=== PATIENT | female | born 1965 | race Caucasian/White ===

== ENCOUNTER 2016-11-19 20:19 | Emergency (ER) | payer OTHER ==
[2016-11-19 21:20] VITALS: BP 96/69
--- NOTE | 2016-11-19 22:11 | UC ---
Lower Extremity/Ankle HPI - HPI Summary HPI Summary: The patient comes in today for: 1. Right ankle pain: Onset: 1 weeks Palliative/provocative: Touching it and standing on it makes it worse. Walking makes it worse. Quality: Burning Region: right lateral ankle Severity: 7/10 Time: Constant. Associated symptoms: Event: She hit her lateral right ankle against a ladder. Treatment: She has been taking oxycodone. * - History of Current Complaint Chief Complaint: UCLowerExtremity Stated Complaint: RIGHT ANKLE INJURY Time Seen by Provider: 11/19/16 21:37 Hx Obtained From: Patient Hx Last Menstrual Period: Years ago. ?: No - Allergies/Home Medications Allergies/Adverse Reactions: Allergies Allergy/AdvReac Type Severity Reaction Status Date / Time No Known Allergies Allergy Verified 11/19/16 21:20 Home Medications: Home Medications Cholecalciferol TAB* [Vitamin D TAB*] 1,000 unit PO DAILY 11/19/16 [History Confirmed 11/19/16] Metoprolol Tartrate TAB* [Lopressor TAB*] 25 mg PO DAILY 11/19/16 [History Confirmed 11/19/16] Pravastatin Sodium [Pravachol] 40 mg PO DAILY 11/19/16 [History Confirmed ] Valsartan TAB* [Diovan TAB*] 160 mg PO DAILY 11/19/16 [History Confirmed ] PMH/Surg Hx/FS Hx/Imm Hx Previously Healthy: No - Chronic back pain, bee allergy Endocrine History Of: Reports: Dyslipidemia Cardiovascular History Of: Reports: Cardiac Disorders - [place], Hypertension, Atrial Fibrillation Denies: Pacemaker/ICD, Myocardial Infarction, Congestive Heart Failure, Deep Vein Thrombosis, Bleeding Disorders Respiratory History Of: Reports: COPD, Asthma Denies: Bronchitis - FREQUENTLY, [place] PAST 2 YEARS, Pneumonia, Pulmonary Embolism GI/ History Of: Reports: Gastroesophageal Reflux, Ulcer - 3 BLEEDING ULCERS, Kidney Stones - HX of Denies: Gastrointestinal Bleed, Gall Bladder Disease, Diverticulitis, Renal Disease, Urosepsis Neurological History Of: Reports: Migraine - RARELY Denies: TIA, CVA, Dementia, Seizures Psychological History Of: Reports: Depression - ON MEDS Denies: Anxiety, Bipolar Disorder, Schizophrenia, Post Traumatic Stress Disorder Cancer History Of: Denies: Lung Cancer, Colorectal Cancer, Breast Cancer, Prostate Cancer, Cervical Cancer Other History Of: Negative For: HIV, Hepatitis B, Hepatitis C, Anticoagulant Therapy - Surgical History Surgical History: Yes Surgery Procedure, Year, and Place: C SECTIONS, 1996, 1990,2001, [place], [place], [place]. [place], [place], 1991. LEFT CARPAL TUNNEL, 2009, [facility] [place]. RIGHT HAND,1996, [place]. CYST FROM RIGHT HAND, [facility] [place]. GALLBLADDER - 04/11 -. CARDIAC CATH - NO STENTS - Family History Known Family History: Positive: Cardiac Disease, Hypertension, Diabetes - Social History Occupation: Unemployed Alcohol Use: None Substance Use Type: None Smoking Status (MU): Current Every Day Smoker Type: Cigarettes Amount Used/How Often: 1 PK PER DAY AND A HALF Length of Time of Smoking/Using Tobacco: 30+ YRS Have You Smoked in the Last Year: Yes Review of Systems Constitutional: Negative Skin: Negative Eyes: Negative ENT: Negative Respiratory: Negative Cardiovascular: Negative Gastrointestinal: Negative Genitourinary: Negative Musculoskeletal: Arthralgia All Other Systems Reviewed And Are Negative: Yes Physical Exam Triage Information Reviewed: Yes Appearance: Well-Appearing, No Pain Distress, Well-Nourished Vital Signs: Initial Vital Signs Temp 98.1 F 11/19/16 21:14 Pulse 70 11/19/16 21:14 Resp 16 11/19/16 21:14 BP 96/69 11/19/16 21:14 Pulse Ox 97 11/19/16 21:14 Vital Signs Reviewed: Yes Eyes: Positive: Conjunctiva Clear. Negative: Discharge ENT: Positive: Hearing grossly normal. Negative: Pharyngeal erythema, Nasal congestion, Nasal drainage, TM bulging, TM dull, TM red, Tonsillar swelling, Tonsillar exudate Dental: Negative: Gross Decay/Caries @, Dental Fracture @ Neck: Negative: Supple, Nontender, No Lymphadenopathy, Nuchal Rigidity Respiratory: Positive: Chest non-tender, Lungs clear, No respiratory distress, No accessory muscle use. Negative: Crackles, Stridor Cardiovascular: Positive: RRR, No Murmur Abdomen Description: Positive: Nontender, No Organomegaly, Soft. Negative: Distended, Guarding Musculoskeletal: Positive: Strength Intact, ROM Intact, No Edema - There is slight tenderness to palpation of her right lateral ankle. The Turcios test was normal and there is no depression of the Achilles tendon with slight dorsiflexion. There was no ecchymosis., Other: Neurological: Positive: Alert, Muscle Tone Normal Psychological: Positive: Normal Response To Family, Age Appropriate Behavior, Consolable Skin: Negative: rashes, breakdown Diagnostics - Radiology No standard instances Xray Interpretation: No Acute Changes Radiology Interpretation Completed By: Radiologist Lower Extremity Course/Dx - Course Course Of Treatment: Patient told of negative ankle x-ray. She was told to use her oxycodone for pain and elevate the foot and warm compresses. - Differential Dx/Diagnosis Provider Diagnoses: Contusion of the right lateral ankle. Discharge - Discharge Plan Condition: Stable Disposition: HOME Patient Education Materials: Contusion in Adults (ED) Referrals: Shun Victoria MD [Primary Care Provider] - 1 Week (Please see your primary care provider next week to see how well you are doing. If you get worse, please be seen sooner by us or the ER.)
--- NOTE | 2016-11-19 22:19 | RAD ---
Indication: Right ankle injury. 3 views of the right ankle demonstrates no fracture. Ankle mortise is intact. Soft tissue swelling is noted laterally. IMPRESSION: No fracture is noted. Soft tissue swelling laterally.
== END 2016-11-19 22:51 | disposition home or self-care (01) ==
LOC: UCCORT 20:19
DX: S90.01XA Contusion of right ankle, initial encounter (principal); W22.8XXA Striking against or struck by other objects, initial encounter; Y93.9 Activity, unspecified; Y92.9 Unspecified place or not applicable; E78.5 Hyperlipidemia, unspecified; I25.2 Old myocardial infarction; I10 Essential (primary) hypertension; I48.91 Unspecified atrial fibrillation; Z90.49 Acquired absence of other specified parts of digestive tract; F17.210 Nicotine dependence, cigarettes, uncomplicated
CPT/HCPCS: 99211; G0463

== ENCOUNTER 2017-01-12 11:50 | Emergency (ER) | payer OTHER ==
[2017-01-12] MEDS ORDERED: Ondansetron ODT TAB* 4 MG PO ONE (13:34)
[2017-01-12] MEDS ORDERED: Albuterol/Ipratropium NEB.SOL* Albuterol 2.5 MG/Ipratropium 0.5 MG 3 ML INH ONE (13:34)
[2017-01-12] MEDS: predniSONE TAB* 20 MG PO ONE ×2 (13:41→13:42)
--- NOTE | 2017-01-12 14:19 | RAD ---
INDICATION: Cough and fever COMPARISON: December 20, 2013 TECHNIQUE: PA and lateral dual-energy views were obtained. FINDINGS: Bones/Soft Tissues: There are no acute bony findings. Cardiomediastinal: The cardiomediastinal silhouette is normal. Lungs: There are no infiltrates. Pleura: There are no pleural effusions. Other: None IMPRESSION: NO ACTIVE DISEASE.
[2017-01-12 14:40] VITALS: BP 180/103
--- NOTE | 2017-01-12 14:54 | UC ---
Ida Blake Matthew, scribed for Lamar Knapp MD on 01/12/17 at 1323 . Respiratory Complaint HPI - HPI Summary HPI Summary: A 51 y/o female presents to with productive cough since 5 days ago. In the last 3 days, she's developed associated fever, chills, body aches, nausea, vomiting, and diaphoresis. She denies rash. She didn't take her valsartan medication today, but she did take the medication yesterday. The patient has been taking ibuprofen for the fever. She's also been on PCN for a tooth infection. The patient was recently seen in the ED for dehydration. The patient has a Hx of [place]. - History of Current Complaint Stated Complaint: FEVER CHILLS VOMITING Hx Obtained From: Patient Hx Last Menstrual Period: Years ago. ?: No Onset/Duration: Gradual Onset, Lasting Days, Still Present Timing: Constant Severity Initially: Mild Severity Currently: Mild Pain Intensity: 0 Pain Scale Used: 0-10 Numeric Character: Cough: Productive Aggravating Factors: Nothing Alleviating Factors: Nothing Associated Signs And Symptoms: Positive: Fever, Chills - Allergies/Home Medications Allergies/Adverse Reactions: Allergies Allergy/AdvReac Type Severity Reaction Status Date / Time No Known Allergies Allergy Verified 01/12/17 13:00 PMH/Surg Hx/FS Hx/Imm Hx Previously Healthy: No - see below Endocrine History Of: Reports: Dyslipidemia Cardiovascular History Of: Reports: Cardiac Disorders - [place] 2014, Hypertension, Atrial Fibrillation Denies: Pacemaker/ICD, Myocardial Infarction, Congestive Heart Failure, Deep Vein Thrombosis, Bleeding Disorders Respiratory History Of: Reports: COPD, Asthma Denies: Bronchitis - [place]QU[place], [place] PAST 2 YEARS, Pneumonia, Pulmonary Embolism GI/ History Of: Reports: Gastroesophageal Reflux, Ulcer - 3 BLEEDING ULCERS, Kidney Stones - HX of Denies: Gastrointestinal Bleed, Gall Bladder Disease, Diverticulitis, Renal Disease, Urosepsis Neurological History Of: Reports: Migraine - RARELY Denies: TIA, CVA, Dementia, Seizures Psychological History Of: Reports: Depression - ON MEDS Denies: Anxiety, Bipolar Disorder, Schizophrenia, Post Traumatic Stress Disorder Cancer History Of: Denies: Lung Cancer, Colorectal Cancer, Breast Cancer, Prostate Cancer, Cervical Cancer Other History Of: Negative For: HIV, Hepatitis B, Hepatitis C, Anticoagulant Therapy - Surgical History Surgical History: Yes Surgery Procedure, Year, and Place: C SECTIONS, 1996, 1990,2001, [place], [place], [place]. [place], [place], 1991. LEFT CARPAL TUNNEL, 2009, [facility] [place]. [place], [place]. CYST FROM RIGHT HAND, [facility] [place]. GALLBLADDER - 04/11 -. CARDIAC CATH - NO STENTS - Family History Known Family History: Positive: Cardiac Disease, Hypertension, Diabetes - Social History Alcohol Use: None Substance Use Type: None Smoking Status (MU): Current Every Day Smoker Type: Cigarettes Amount Used/How Often: 1 PK PER DAY AND A HALF Length of Time of Smoking/Using Tobacco: 30+ YRS Have You Smoked in the Last Year: Yes Review of Systems Constitutional: Fever, Chills, Other - Diaphoresis Skin: Negative Eyes: Negative ENT: Negative Respiratory: Cough - productive Cardiovascular: Negative Gastrointestinal: Vomiting, Other - Nausea Genitourinary: Negative Motor: Negative Neurovascular: Negative Musculoskeletal: Myalgia - body aches Neurological: Negative Psychological: Negative All Other Systems Reviewed And Are Negative: Yes Physical Exam Triage Information Reviewed: Yes Appearance: Ill-Appearing Vital Signs: Initial Vital Signs Temp 96.0 F 01/12/17 12:54 Pulse 71 01/12/17 12:54 Resp 20 01/12/17 12:54 BP 217/107 01/12/17 12:54 Pulse Ox 100 01/12/17 12:54 Vital Signs Reviewed: Yes Eyes: Positive: Conjunctiva Clear ENT: Positive: TM dull - bilaterally, Other: - TM's retracted bilaterally Neck: Positive: Supple, Nontender Respiratory: Positive: Chest non-tender, No respiratory distress, Rhonchi - Scattered bilaterally, Wheezing - diffuse expiratory wheezing Cardiovascular: Positive: RRR, No Murmur, Pulses Normal, Brisk Capillary Refill Abdomen Description: Positive: Nontender, No Organomegaly, Soft Bowel Sounds: Positive: Present Musculoskeletal Exam: Normal Musculoskeletal: Positive: Strength Intact Neurological Exam: Normal - nonfocal, grossly intact Psychological Exam: Normal - conversing easily and appropriately Skin Exam: Normal - no visible or reported rash UC Diagnostic Evaluation - Laboratory O2 Sat by Pulse Oximetry: 100 - Radiology Xray Interpretation: No Acute Changes - IMPRESSION: NO ACTIVE DISEASE. Radiology Interpretation Completed By: Radiologist Respiratory Course/Dx - Course Course Of Treatment: Tolerated breathing treatment well. 14:45 feels much better, conversing better. No new problems. Will f/u pcp - recommend within one week if possible. Reviewed meds / allergies. Has a nebulizer, but not sure if works. Rx - albuterol (neb) and inhaler (if neb not working). She will check with her pcp about pre-auth for xopinex. Seek med attention sooner for worse or new problems. - Differential Dx/Diagnosis Provider Diagnoses: Acute bronchites. wheezing Discharge - Discharge Plan Condition: Improved Disposition: HOME Prescriptions: Albuterol 2.5MG/3ML (0.083%)* [Ventolin 2.5 MG/3 ML NEB.PATRICK*] 2.5 mg INH Q6H PRN #1 box PRN Reason: Wheezing Ciprofloxacin HCl [Cipro 500 MG TAB] 500 mg PO BID #20 tab Ondansetron [Zofran 4 MG Odt] 4 mg PO Q8H PRN #20 tab PRN Reason: Nausea predniSONE TAB* [Deltasone TAB*] 10 mg PO DAILY #20 tab Patient Education Materials: Ondansetron (By mouth), How to Stop Smoking (ED), Acute Bronchitis (ED), COPD (Chronic Obstructive Pulmonary Disease) (ED), Wheezing (ED) Referrals: Shun Victoria MD [Primary Care Provider] - Additional Instructions: Please follow-up with Dr. Victoria this week. Please seek medical attention sooner for worse or new problems. The documentation as recorded by the Ida vergara Matthew accurately reflects the service I personally performed and the decisions made by me, Lamar Knapp MD.
== END 2017-01-12 15:21 | disposition home or self-care (01) ==
LOC: UCEAST 11:50
DX: J20.9 Acute bronchitis, unspecified (principal); R06.2 Wheezing; I25.2 Old myocardial infarction; I10 Essential (primary) hypertension; I48.91 Unspecified atrial fibrillation; J44.9 Chronic obstructive pulmonary disease, unspecified; K21.9 Gastro-esophageal reflux disease without esophagitis; G43.909 Migraine, unspecified, not intractable, without status migrainosus; F32.9 Major depressive disorder, single episode, unspecified; Z90.49 Acquired absence of other specified parts of digestive tract; F17.210 Nicotine dependence, cigarettes, uncomplicated
CPT/HCPCS: 71020; 99213; A9270-GY; G0463; J7512

== ENCOUNTER 2019-02-14 08:39 | Day surgery (SDC) | payer OTHER ==
--- NOTE | 2019-02-03 17:04 | HP ---
Amended report to enter cosigning physician. PREOPERATIVE HISTORY AND PHYSICAL: DATE OF ADMISSION/SURGERY: 02/14/19 DATE OF OFFICE VISIT/ENCOUNTER: 01/16/19 ATTENDING SURGEON: Margarita Snell MD* (dictated by BRIANDA Quan). ECDIS N NAVIGATION OPERATOR: Dr. Cochran. PRIMARY CARE PHYSICIAN: Dr. Whiting. PROCEDURE: Right wrist ganglion cyst excision. HISTORY OF PRESENT ILLNESS: This is a 53-year-old female, who complains of a painful lump on the volar aspect of her right wrist. It has been present for about a year. She does not recall any specific injury. She had a ganglion cyst removed from that same area several years ago. She would like to have this mass removed as well. She has cardiac issues for which she is followed by Dr. Cochran, also some chronic pain primarily involving her back and is prescribed oxycodone 10 mg 1 tab every 6 hours as needed for pain by Dr. Whiting. We will obtain clearance from her materials planner/production planner prior to proceeding with surgery. PAST MEDICAL HISTORY: 1. Rheumatoid arthritis. 2. History of gastric ulcer/GERD. 3. History of sleep apnea. 4. History of myocardial infarction x2, 1 approximately 3 years ago, 1 approximately 4 years ago. 5. Depression/anxiety. 6. Low back pain. 7. Hypertension. 8. Aortic valve disorder with associated murmur. 9. Hypercholesterolemia. PAST SURGICAL HISTORY: 1. Right wrist for torn cartilage. 2. Cholecystectomy. 3. Cardiac catheterization x3 in 2012 and 2 times in 2013. 4. x3. 5. Cone biopsy. MEDICATIONS: 1. Aspirin 81 mg daily. 2. B12 Active 1 mg 1 tablet daily sublingually. 3. Colace 100 mg 1 tab 2 to 3 times a day p.r.n. constipation. 4. Estradiol 0.1 mg cream use twice a week. 5. Gabapentin 300 mg 3 times a day. 6. KLS Quit 4 mg 1 piece of gum every 1 to 2 hours as needed for tobacco cravings. 7. Metoprolol succinate ER 25 mg daily. 8. Naproxen 500 mg twice a day. 9. Nicotine 21 mg/24 hours 1 patch topically to skin every morning. 10. Nicotrol 10 mg inhaled 1 by mouth every 2 hours as needed. 11. Omeprazole 20 mg daily. 12. Oxycodone 10 mg 1 tab q.6 hours p.r.n. 13. Plaquenil 200 mg daily. 14. Pravastatin sodium 40 mg daily. 15. Proventil HFA inhaler 2 puffs q.4 hours p.r.n. 16. Vitamin B12 250 mcg daily. 17. Vitamin D3 Super Strength 2000 units daily. ALLERGIES: No known drug allergies. The patient is allergic to BEE STINGS. FAMILY MEDICAL HISTORY: Mother secondary to PE at age 54. Other family history includes diabetes, arthritis, hypertension, and Parkinson's. SOCIAL HISTORY: The patient is unemployed/disabled. She is a current smoker. She smokes a pack per day and has done so for 30 years. She smokes marijuana on occasion. Does not drink alcohol. REVIEW OF SYSTEMS: Negative for general, cephalic, cardiovascular, respiratory. GI: Positive for constipation secondary to narcotic use. : Negative. Musculoskeletal: Positive for current complaint along with chronic back pain. Integumentary: Negative. Negative endocrine, neurologic, and hematologic symptoms. Infectious Diseases: Negative for MRSA, hepatitis C, HIV. PHYSICAL EXAMINATION GENERAL: A well-developed, well-nourished 53-year-old female, in no acute distress. VITAL SIGNS: Height 5 feet tall, weight 123 pounds. Pulse rate 56, blood pressure 148/81. HEENT: Normocephalic, atraumatic. Pupils are equal, round, and reactive to light and accommodation. Extraocular movements are intact. Throat is clear. NECK: Supple. No palpable lymph nodes. PULMONARY: Expiratory wheezes noted at bases of lungs bilaterally, generally cleared with coughing. CARDIOVASCULAR: Regular rate and rhythm. S1, S2. Mild murmur detected on auscultation. No rubs or gallops. No edema. ABDOMEN: Positive bowel sounds. Soft, nontender. NEUROLOGICAL: Alert and oriented x3. Cranial nerves II through XII are intact. Sensation is intact to light touch. MUSCULOSKELETAL: On exam of her right wrist, there is a large 2 x 1 cm cystic mass on the volar radial aspect. It is mildly tender to palpation. She can flex and extend her fingers well and make a good fist. Skin is intact. Neurovascular function is intact. IMAGING STUDIES: X-rays, AP, lateral, and oblique of the right wrist show mild -to- moderate degenerative changes, but otherwise are unremarkable. IMPRESSION: Right wrist ganglion cyst. PLAN: The patient is scheduled to have a right wrist ganglion cyst excision with Dr. Snell on 02/14/19. She will return to the office 10 days postop for followup and suture removal. She has oxycodone 10 mg already prescribed for her and she may use that for postoperative pain management if needed. BRIANDA QUAN [id number]/[facility] #: [id number] SONJA
[~2019-02-14 08:39] MED LIST: Acetaminophen TAB* 325 MG PO PRN; Buffered Lidocaine 1% SYRIN* 1 ML/SYRINGE INTRADERM ONE; Dexamethasone IV* 4 MG/ML 1 ML (4 MG) IV SLOW PU ONE; Famotidine IV* 10 MG/ML 2 ML (20 mg) IV ONE; HYDROcodone/ACETAMIN 5-325 MG* 1 TAB PO PRN; Ketorolac INJ* 30 MG/ML 1 ML VIAL IV PRN; Lactated Ringers 1000 ML Bag* 1,000 ML IV SCH; Naloxone* 0.4 MG/ML 1 ML VIAL IV PRN; Ondansetron INJ* 2 MG/ML VIAL IV PRN; fentaNYL* 50 MCG/ML 2 ML VIAL (100 MCG VIAL) IV PRN; oxyCODONE/Acetamin 5/325 MG* TAB PO PRN
[2019-02-14] MEDS ORDERED: Dexamethasone IV* 4 MG/ML 1 ML (4 MG) ONE (08:40)
[2019-02-14] MEDS ORDERED: Famotidine IV* 10 MG/ML 2 ML (20 mg) ONE (08:40)
[2019-02-14] MEDS ORDERED: Propofol* 10 MG/ML 20 ML BTL ONE (09:20)
[2019-02-14] MEDS ORDERED: fentaNYL* 50 MCG/ML 2 ML VIAL (100 MCG VIAL) ONE (09:20)
[2019-02-14] MEDS ORDERED: Lidocaine 2% PF * 5 ML VIAL ONE (09:20)
[2019-02-14] MEDS ORDERED: Midazolam* 1 MG/ML 2 ML VIAL (2 MG) ONE (09:20)
[2019-02-14] MEDS ORDERED: Lidocaine 1% INJ* 10 MG/ML 30 ML SDV ONE (10:03)
[2019-02-14] MEDS ORDERED: Phenylephrine 40 MCG/ML SYRINGE ONE (10:26)
[2019-02-14 10:59] VITALS: BP 117/77
--- NOTE | 2019-02-14 15:18 | OP ---
CC: Dr. Snell OPERATIVE REPORT: DATE OF OPERATION: 02/14/19 DATE OF : 63 SURGEON: Margarita Snell MD. QUALITY ASSURANCE CLERK: BRIANDA Quan ANESTHESIA: Local MAC. PRE-OP DIAGNOSIS: Right volar wrist ganglion. POST-OP DIAGNOSIS: Right volar wrist ganglion. OPERATIVE PROCEDURE: Removal of right volar wrist ganglion. ESTIMATED BLOOD LOSS: Zero. TOURNIQUET TIME: About 25 minutes. INDICATIONS FOR PROCEDURE: Maria Dolores is a 53-year-old female who has a mass on the volar radial aspect of her right wrist. She presents for removal. DESCRIPTION OF PROCEDURE: The patient was brought to the operating room, was given a sedation anesth etic and a local infiltration of 10 cc of 1% plain lidocaine overlying the right wrist mass. The ski n of her right upper extremity was prepped and draped in the usual sterile fashion. The hand and for earm were exsanguinated and the tourniquet elevated to 250 mmHg. A chevron incision was made centere d over the mass and we dissected through the subcutaneous tissue. The mass was encasing the radial a rtery and was carefully dissected off the artery and traced with its stock down to the wrist joint. It was removed with a small portion of wrist joint capsule and then the edges of the capsule were cau terized with the Bovie. The mass was sent for pathology. The wound was irrigated and skin edges berenice pproximated with 4-0 nylon suture. The wound was dressed with Xeroform, 4x4s, Webril, and an Erlin wra p. The patient tolerated the procedure well and was brought to the recovery room in good condition. [id number]/[facility] #: [id number]
== END 2019-02-14 11:18 | disposition home or self-care (01) ==
LOC: OREAST 08:39
PROVIDERS: ATTEND Orthopaedic Surgery
DX: M67.431 Ganglion, right wrist (principal); M06.9 Rheumatoid arthritis, unspecified; I25.2 Old myocardial infarction; F41.8 Other specified anxiety disorders; I10 Essential (primary) hypertension; I35.1 Nonrheumatic aortic (valve) insufficiency; E78.00 Pure hypercholesterolemia, unspecified; K21.9 Gastro-esophageal reflux disease without esophagitis; G47.33 Obstructive sleep apnea (adult) (pediatric); Z72.0 Tobacco use
CPT/HCPCS: 88304; J1100; J2250; J2704; J3010